=== PATIENT | female | born 1980 | race Hispanic/Latino ===

== ENCOUNTER 2017-10-16 18:04 | Inpatient (IN) | payer MEDICAID ==
[2017-10-16] MEDS ORDERED: XYLOCAINE 2% INFILTRATI ONE (19:06)
[2017-10-16] MEDS ORDERED: ZOFRAN IV PRN (19:06)
[2017-10-16] MEDS ORDERED: STADOL IV PRN (19:06)
[2017-10-16] MEDS ORDERED: BRETHINE SUB-Q PRN (19:06)
[2017-10-16] MEDS ORDERED: MINERAL OIL PO PRN (19:06)
[2017-10-16] MEDS ORDERED: SUBLIMAZE IV PRN (19:06)
[2017-10-16] MEDS ORDERED: BRETHINE IVP PRN (19:06)
[2017-10-16] MEDS ORDERED: ePHEDrine SULFATE IV PRN (19:06)
--- NOTE | 2017-10-16 19:17 | History and Physical Report ---
History of Present Illness Date of examination: 10/16/17 Date of admission: 10/16/2017 Chief complaint: 37 yo admitted at 38 wk 1day in labor at 4 cm dilated. complicated by advanced maternal age and morbid obesity, BMI 45. One prior vag del, Last EFW was 6#4oz on 09/29/2017 MBT A pos, Rub Imm, Known GBS pos History of present illness: Remainder of H&P from [facility] and confirmed today. 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 Weight (lb): 255 BMI: 45.3 BP: 126/ 84 mm Hg Ur. Protein: negative Ur. Glucose: 1+ Chief Complaint/Current Status: Patient presents for missed period. No complaints.....chloé Says LMP 12/23 but is not 30wk by size or u/s, dated by todays u/s which is exactly 1 month off. Spilling glucose 1+ on urine and is 25 wk so 1 hr done today with IOL. Advanced maternal age. 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 no EDC Calculations LMP: 09/29/2017 Initial exam (date): 07/21/2017 = 26 Exam: 10/27/2017 EDC Confirmation: 10/29/2017 Gestational Age: 25 5/7 weeks Past History : 2 Term Births: 1 Living Children: 1 Para: 1 # 1 Delivery date: 02/08/2013 Weeks Gestation: 39+2 labor: no Delivery type: Hours of labor: 25 Anesthesia type: epidural Delivery location: Sex: Female weight: 8-7 Name: Veronica Past Medical History: G E R D PCOS Past Surgical History: negative Past Medical History Anesthesia Complications: negative Anemia: negative Autoimmune Disorder: negative Bleeding Disorder: negative Blood Transfusions: negative Breast Disease: negative Diabetes: negative Heart Disease: negative Hypertension: negative Hepatitis/Liver Disease: negative Kidney Disease/UTI: negative Neurologic/Epilepsy/Migraines: negative Phlebitis/Varicosities: negative Psychiatric: negative Pulmonary Disease/Asthma: negative Thyroid Disease: negative Hospitalizations: negative Surgery (Non-last code striper): negative Abnormal PAP: negative ANTONELLA Exposure: negative Infertility: negative Uterine Anomaly: negative Uterine Surgery (not C/S): negative Other Gynecologic Problems: negative Infection History Hx of STD: none HIV Risk Eval: low risk Hepatitis B Risk Eval: low risk Personal hx. of genital herpes: no Partner hx. of genital herpes: no Varicella/Chicken Pox Status: Previous Disease TB Risk: no Genetic History ADVANCED MATERNAL AGE Congenital Heart Defect: Mom: no Dad: no Jean Marie Disease: Mom: no Dad: no Thalassemia Mom: no Dad: no Neural Tube Defect Mom: no Dad: no Down's Syndrome Mom: no Dad: no Sunil-Sachs Mom: no Dad: no Sickle Cell Disease/Trait Mom: no Dad: no Hemophilia Mom: no Dad: no Muscular Dystrophy Mom: no Dad: no Cystic Fibrosis Mom: no Dad: no Hugo Chorea Mom: no Dad: no Mental Retardation Mom: no Dad: no Fragile X Mom: no Dad: no Other Genetic/Chromosomal Disorder Mom: no Dad: no Child w/other defect Mom: no Dad: no Enviromental Exposures Xray Exposure: no Medication, drug, or alcohol use since LMP: no Chemical/Other Exposure: no Exposure to Cat Liter: no Hx of Parvovirus (Fifth Disease): no Current Allergies (reviewed today): * CECLOR (Critical) Laboratory Results Routine Urinalysis Leukocytes: 2+ Nitrite: negative Urobilinogen: negative Protein: negative Blood: negative Ketone: negative Bilirubin: negative Glucose: 1+ Urine HCG: positive Review of Systems General Denies fever, chills, sweats, anorexia, fatigue, weakness, malaise, weight loss and sleep disorder. Denies nausea, vomiting, headache, swelling of legs, abdominal pain, vaginal discharge, vaginal bleeding and contractions. Denies vaginal discharge, incontinence, dysuria, hematuria, urinary frequency, amenorrhea, menorrhagia, abnormal vaginal bleeding, pelvic pain, genital sores, decreased libido, painful periods, painful sex, urinary urgency, hot flashes, vaginal dryness, vaginal itching and vaginal odor. CV Denies chest pains, palpitations, syncope, dyspnea on exertion, orthopnea, PND and peripheral edema. Resp Denies cough, dyspnea at rest, excessive sputum, hemoptysis, wheezing and pleurisy. GI Denies nausea, vomiting, diarrhea, constipation, change in bowel habits, abdominal pain, melena, hematochezia, jaundice, gas/bloating, indigestion/ heartburn, dysphagia and odynophagia. Endo Denies cold intolerance, heat intolerance, polydipsia, polyphagia, polyuria and unusual weight change. Breast Denies left breast lump, right breast lump, nipple discharge, bloody discharge from nipple, breast pain, abnormal mammogram and breast enlargement. MS Denies back pain, joint pain, joint swelling, muscle cramps, muscle weakness, stiffness, arthritis, sciatica, restless legs, leg pain at night and leg pain with exertion. Derm Denies rash, itching, dryness and suspicious lesions. Neuro Denies paralysis, paresthesias, headache, seizures, tremors, vertigo, transient blindness, frequent falls, frequent headaches and difficulty walking. Psych Denies depression, anxiety, irritability and mood swings. Eyes Denies blurring, diplopia, irritation, discharge, vision loss, eye pain and photophobia. ENT Denies earache, ear discharge, tinnitus, decreased hearing, nasal congestion, nosebleeds, sore throat and hoarseness. Allergy Denies urticaria, allergic rash, hay fever and recurrent infections. Heme Denies abnormal bruising, bleeding and enlarged lymph nodes. PHYSICAL EXAM HEENT: PERRLA, normal conjunctiva, external nose and nasal mucosa normal, oropharynx cleaFacial and neck hirsutism Neck/Thyroid: supple, thyroid normal Skin no significant abnormal lesions or rashes Chest: respiratory effort normal, clear to auscultation inverted nipples Breasts: normal without skin changes or masses CV: regular, normal S1-S2, no murmur, no rub, no gallop Abdomen: normal bowel sounds, soft, nontender, no HSM morbid obesity BMI 45 Musculoskeletal: grossly normal ROM in joints, no joint tenderness or muscle weakness Neuro: grossly normal DTRs, sensation, strength, cranial nerves Extremities: no clubbing, cyanosis, or edema BLUEPRINTER Exams Vulva/Vagina: No lesions, normal BUS, normal rugae Cervix: No lesions; no cervical motion tenderness Uterus: normal size and position, midline, mobile Fundal Ht: 26 FHT: u/s Adnexae: no masses or tenderness Rectovaginal: no masses or tenderness Flowsheet View for Follow-up Visit Estimated weeks of gestation: 25 5 Weight: 255 Blood pressure: 126 / 84 Urine protein: negative Urine glucose: 1+ Urine nitrite: negative Fundal height: 26 FHR: u/s Current OB Labs Education Provided: 1) Education provided today and information packet given. 2) Education packet given; please call if you have any questions. 3) Elevate head of bed at least 6 inches (raise bed posts not just with pillows ); small frequent meals and take TUMS as needed. Impression & Recommendations: Problem # 1: Irregular menses (ICD-626.4) (UEM31-N40.6) Orders: Urine Test (UPT) (CPT-03140) Urine Test (UPT) (CPT-12137) Ofc Vst New 48097 (CPT-47977) Medications Added to Medication List This Visit: 1) Prilosec Past History - Obstetrical History : 2 Medications and Allergies Allergies Allergy/AdvReac Type Severity Reaction Status Date / Time cefaclor [From [facility]] Allergy Mild Hives Verified 10/16/17 19:52 Latex, Natural Rubber AdvReac Mild Itching Verified 10/16/17 19:51 Active Meds: Active Medications Butorphanol Tartrate (Stadol) 2 mg IV Q2H PRN PRN Reason: Pain , Severe (7-10) Ephedrine Sulfate (Ephedrine Sulfate) 10 mg IV Q2M PRN PRN Reason: Hypotension Fentanyl (Sublimaze) 100 mcg IV Q2H PRN PRN Reason: Labor Pain Ampicillin Sodium (Polycillin/Ns 1 Gm/50 Ml) 1 gm in 50 mls @ 100 mls/hr IV Q4HR NAVEED PRN Reason: Protocol Lactated Ringer's (Lactated Ringers) 1,000 mls @ 125 mls/hr IV DIRECT NAVEED Oxytocin/Sodium Chloride (Pitocin/Ns 20 Unit/1000ml Drip) 20 units in 1,000 mls @ 125 mls/hr IV DIRECT NAVEED Lidocaine (Xylocaine 2%) 20 ml INFILTRATI ONCE ONE Stop: 10/16/17 19:07 Mineral Oil (Mineral Oil) 30 ml PO QHS PRN PRN Reason: Constipation Ondansetron HCl (Zofran) 4 mg IV Q8H PRN PRN Reason: Nausea And Vomiting Terbutaline Sulfate (Brethine) 0.25 mg SUB-Q ONCE PRN PRN Reason: Hyperstimulation/Hypertonicity Terbutaline Sulfate (Brethine) 0.25 mg IVP ONCE PRN PRN Reason: Hyperstimulation/Hypertonicity - Vital Signs Vital signs: Vital Signs Temp Resp 97.6 F 18 10/16/17 18:33 10/16/17 18:33 Temp Pulse Resp BP Pulse Ox 97.6 F 96 H 18 132/74 10/16/17 18:33 10/16/17 19:06 10/16/17 18:33 10/16/17 19:06 Results Result Diagrams: 10/16/17 19:40 All other labs normal. Assessment and Plan - Patient Problems (1) Active labor at term Current Visit: Yes Status: Acute Plan to address problem: delivery (2) Advanced maternal age during in third trimester Current Visit: Yes Status: Acute (3) Morbid obesity Current Visit: Yes Status: Acute (4) Positive GBS test Current Visit: Yes Status: Acute
[2017-10-16] MEDS ORDERED: PITOCin/NS 20 UNIT/1000ML DRIP 20 UNITS/1,000 ML BAG IV SCH (20:00)
[2017-10-16 20:22] LABS: Hematocrit 34.3 % (30.3-42.9); Hemoglobin 11.2 gm/dl (10.1-14.3); Mean Corpuscular HGB Conc 33 % (30-34); Mean Corpuscular Hemoglobin 26 pg (28-32); Mean Corpuscular Volume 81 fl (79-97); Platelet Count 287 K/mm3 (140-440); Red Blood Count 4.25 M/mm3 (3.65-5.03); Red Cell Distribution Width 15.3 % (13.2-15.2)
[2017-10-16] MEDS ORDERED: POLYCILLIN/NS 2 GM/100 ML 2 GM/100 ML BAG IV ONE (21:07)
[2017-10-16] MEDS: LACTATED RINGERS 1,000 ML IV SCH (21:15)
[2017-10-16] MEDS ORDERED: PITOCin/NS 30 UNIT/500ML 30,000 MILLIUNITS/500 ML BAG IV ONE (21:54)
[2017-10-16] MEDS ORDERED: NARCAN 2 MG/2 ML IV PRN (21:58)
--- NOTE | 2017-10-16 21:58 | Anesthesia Consultation ---
Anesthesia Consult and Med Hx Date of service: 10/16/17 - Airway Anesthetic Teeth Evaluation: Good ROM Head & Neck: Adequate Mental/Hyoid Distance: Adequate Intubation Access Assessment: Possibly Difficult - Pulmonary Exam CTA: Yes - Cardiac Exam Cardiac Exam: RRR - Pre-Operative Health Status ASA Pre-Surgery Classification: ASA3, Emergency Proposed Anesthetic Plan: Epidural, Spinal - Pulmonary Hx Asthma: No COPD: No Hx Pneumonia: No - Cardiovascular System Hx Hypertension: No - Central Nervous System Hx Seizures: No Hx Psychiatric Problems: No - Endocrine Hx Renal Disease: No Hx End Stage Renal Disease: No Hx Hypothyroidism: No Hx Hyperthyroidism: No - Hematic Hx Anemia: No Hx Sickle Cell Disease: No - Other Systems Hx Alcohol Use: No Hx Obesity: Yes (morbid)
[2017-10-16] MEDS ORDERED: fentaNYL-BUPIV 2 MCG/ML-0.125% 200 MCG/100 ML BAG EPIDURAL SCH (22:00)
[2017-10-16] MEDS ORDERED: PITOCin/NS 30 UNIT/500ML 30 UNITS/500 ML BAG IV SCH (22:45)
[2017-10-17] MEDS: LACTATED RINGERS 1,000 ML IV SCH (00:45)
[2017-10-17] MEDS ORDERED: POLYCILLIN/NS 1 GM/50 ML 1 GM/50 ML BAG IV SCH (02:00)
--- NOTE | 2017-10-17 04:48 | Procedure Note ---
OB Delivery Note - Delivery Date of Delivery: 10/17/17 Surgeon: ALEXIS MAGANA Estimated blood loss: 300cc - Vaginal Delivery presentation: vertex Delivery position: OA Delivery induction: none Delivery augmentation: rupture of membranes, pitocin Delivery monitor: external FHT, external uterine Route of delivery: Delivery placenta: spontaneous Delivery cord: 3 umbilical vessels Episiotomy: none Delivery laceration: 1st degree Delivery repair: vicryl (3-0) Anesthesia: epidural - A at 1 minute: 8 at 5 minutes: 9 Infant Gender: Male (7#3oz)
[2017-10-17] MEDS ORDERED: TYLENOL PO PRN (04:54)
[2017-10-17] MEDS ORDERED: MILK OF MAGNESIA PO PRN (04:54)
[2017-10-17] MEDS ORDERED: PHENERGAN PR PRN (04:54)
[2017-10-17] MEDS ORDERED: ZOFRAN IV PRN (04:54)
[2017-10-17] MEDS ORDERED: BENADRYL PO PRN (04:54)
[2017-10-17] MEDS ORDERED: TUCKS PAD TP PRN (04:54)
[2017-10-17] MEDS ORDERED: DULCOLAX PR PRN (04:54)
[2017-10-17] MEDS ORDERED: PHENERGAN PO PRN (04:54)
[2017-10-17] MEDS ORDERED: NORCO 5/325 PO PRN (04:54)
[2017-10-17] MEDS ORDERED: SODIUM CHLORIDE FLUSH SYRINGE 10 ML IV PRN (05:00)
[2017-10-17] MEDS: SENOKOT S PO SCH ×2 (06:38→21:44)
[2017-10-17] MEDS: MOTRIN PO SCH ×4 (06:40→23:33)
[2017-10-17] MEDS ORDERED: Fluarix Quad 2017-2018(36 MOS+ IM ONE (12:00)
[2017-10-17] MEDS: COLACE PO SCH ×2 (13:42→21:42)
[2017-10-17 16:13] LABS: Hematocrit 30.1 % (30.3-42.9); Hemoglobin 9.9 gm/dl (10.1-14.3)
[2017-10-18] MEDS ORDERED: BOOSTRIX IM ONE (04:00)
[2017-10-18] MEDS: MOTRIN PO SCH ×2 (05:07→13:10)
--- NOTE | 2017-10-18 12:04 | Discharge Summary ---
Providers - Providers Date of Admission: 10/16/17 19:37 Date of discharge: 10/18/17 Attending physician: ALEXIS MAGANA Primary care physician: ALEXIS MAGANA Hospitalization Reason for admission: active labor Delivery: Procedure details: 7#3oz male after desultory labor requiring augmentation PP hct 30 after admit hct 34 Episiotomy: none Laceration: 1st degree (repaired) Other procedures: none complications: none Discharge diagnosis: IUP at term delivered baby: male (7#3oz) Hospital course: nl pp course Condition at discharge: Good Disposition: DC-01 TO HOME OR SELFCARE - Discharge Diagnoses (1) Vaginal delivery Status: Acute (2) Active labor at term Status: Acute (3) Advanced maternal age during in third trimester Status: Acute (4) Morbid obesity Status: Acute (5) Positive GBS test Status: Acute Plan - Discharge Medications Prescriptions: Ibuprofen [Motrin 600 MG tab] 600 mg PO Q8H PRN #30 tablet PRN Reason: Pain Lidocain2.5%/Prilocai2.5% [Emla] 5 gm TP 1XW #1 tube - Provider Discharge Summary Activity: no sex for 6 weeks, no heavy lifting 4 weeks Diet: routine Instructions: routine Additional instructions: [] Smoking cessation referral if applicable(refer to patient education folder for contact #) [] Refer to [facility] Booklet Call your doctor immediately for: * Fever > 100.5 * Heavy vaginal bleeding ( >1 pad per hour) * Severe persistent headache * Shortness of breath * Reddened, hot, painful area to leg or breast * Drainage or odor from incision. * Keep incision clean and dry at all times and follow doctor's instructions regarding bathing/showering - Follow up plan Follow up: ALEXIS MAGANA MD [Primary Care Provider] - 7 Days
[2017-10-18] MEDS: COLACE PO SCH (13:11)
[2017-10-18 15:34] VITALS: BP 109/76
== END 2017-10-18 15:45 | disposition home or self-care (01) | DRG 775 ==
LOC: TRG 18:04 → LD 19:37 → TRG 19:37 → OB 10-17 06:16
PROVIDERS: ADMIT Obstetrics & Gynecology; ATTEND Obstetrics & Gynecology
PROC: 10E0XZZ Delivery of Products of Conception, External Approach (ICD-10-PCS; principal; 2017-10-17)
PROC: 0HQ9XZZ Repair Perineum Skin, External Approach (ICD-10-PCS; 2017-10-17)
PROC: 3E0234Z Introduction of Serum, Toxoid and Vaccine into Muscle, Percutaneous Approach (ICD-10-PCS; 2017-10-17)
PROC: 3E0R3BZ Introduction of Anesthetic Agent into Spinal Canal, Percutaneous Approach (ICD-10-PCS; 2017-10-17)
PROC: 00HU33Z Insertion of Infusion Device into Spinal Canal, Percutaneous Approach (ICD-10-PCS; 2017-10-17)
DX: O99.824 Streptococcus B carrier state complicating childbirth (principal); Z37.0 Single live birth; O99.214 Obesity complicating childbirth; E66.01 Morbid (severe) obesity due to excess calories; Z68.42 Body mass index [BMI] 45.0-49.9, adult; Z3A.38 38 weeks gestation of pregnancy; Z88.8 Allergy status to other drugs, medicaments and biological substances; Z91.040 Latex allergy status; O70.0 First degree perineal laceration during delivery; Z23 Encounter for immunization
CPT/HCPCS: 36415; 85014; 85018; 85027; 86592; 86850; 86900; 86901; 90471; 90715; J0290; J2590; J7120